=== PATIENT | male | born 1955 | race Caucasian/White ===

== ENCOUNTER 2017-02-17 11:01 | Day surgery (SDC) | payer MEDICARE ==
[~2017-02-17] VITALS: Ht 180.3 cm; Wt 86.2 kg
[2017-02-17] VITALS (8 sets, daily range): BP systolic 85–126; BP diastolic 50–76; PULSE 80–88; RESP 10–19; O2SAT 95–98
[~2017-02-17 11:01] MED LIST: CeFAZolin Inj 2 GM in IV Premix 1 EACH IV ONE; Dexamethasone 4 mg/mL Inj IVPUSH PRN; EPHEDrine Sulfate 50 mg/mL Inj IVPUSH PRN; HYDROmorphone 1 mg/mL Inj IVPUSH PRN; Labetalol 5 mg/mL 4 mL Inj IV PRN; Lactated Ringer's 1,000 ML IV SCH; Lactated Ringer's 500 ML IV PRN; MetoCLOpramide 5 mg/mL 2 mL Inj IVPUSH PRN; Ondansetron 2 mg/mL 2 mL Inj IVPUSH PRN; Phenylephrine 10,000 mCg/mL Inj IVPUSH PRN; TAMS0.4C98 PO; fentaNYL-PF 50 mCg/mL 2 mL Inj IVPUSH PRN; hydrALAZINE 20 mg/mL Inj IVPUSH PRN
[2017-02-17] MEDS ORDERED: Ketamine 10 mg/mL 20 mL Inj ONE (11:02)
[2017-02-17] MEDS ORDERED: fentaNYL-PF 50 mCg/mL 2 mL Inj ONE (11:02)
[2017-02-17] MEDS ORDERED: Lactated Ringer's 1,000 ML IV ONE (11:33)
[2017-02-17] MEDS ORDERED: CeFAZolin 2 Gm/50 mL D5W Duplex Bag IV ONE (11:51)
--- NOTE | 2017-02-17 13:52 | PCM.HPANE ---
Patient Data Date of Service: Feb 17, 2017 Surgeon Admitting Provider: Attending Provider:Ezio Vergara MD Primary Care Physician:Misti Quick MD Other Provider:Hima Dumont Anesthesia Reason for Visit Left Inguinal Hernia Ht/WT & BMI Height (Feet): 5 Height (Inches): 11.00 Weight (Kilograms): 86.180 Body Mass Index 26.00 Allergies Coded Allergies: No Known Allergies (Unverified , 02/16/17) Past Anesthesia History Anesthesia History: Denies:: Anesthesia Reactions Diabetes History Hx Diabetes?: No Medications Home Meds Incl Beta Milagro: No Reported Medications Tamsulosin (Flomax)0.4 Mg Capsule0.4 Mg PO DAILY Ref 0 02/16/17 History History of ENT Problems?: No HEENT History: Denies:: Abnormal Airway Cataracts Difficult Intubation Dysphagia Glaucoma Hearing Problem Sinus Problem TMJ Denture Type: None Teeth Condition: Within Normal Limits Hx of Heart Problems?: No Cardiovascular History: Denies:: AICD Abdominal Aortic Aneurism Atrial Fibrillation Cardiac Surgery Chest Pain Congestive Heart Failure Coronary Artery Disease Edema Heart Murmur Hypertension Irregular Heartbeat Pacemaker Peripheral Vascular Rheumatic Fever Thrombophlebitis Valvular Heart Disease Hx of Respiratory Problem?: No Respiratory History: Denies:: Oxygen Administration Use of C-PAP Machine Hx Neurologic Problems?: No Neurological History: Denies:: CVA Multiple Sclerosis Parkinson's Disease Seizures Hx of GI Problems?: Yes Other GI Pertinent History: left inguinal hernia current admission problem Hx of Problems?: Yes Genitourinary History: Positive for:: Kidney Stones (past hx of kidney stones) Male Hx: Positive for:: Prostate Problems (BPH) Hx Musculoskeletal Problems?: Yes Musculoskeletal History: Positive for:: Degenerative Joint Hx of Psycho/Social Problems?: No Hx Surgeries?: Yes (tonsil, exc lipoma, exc vocal cord tumor) Hx Any Other Health Problems?: Yes Other History: Denies:: Cancer Thyroid Disease Hx Diabetes: No Hx Alcohol Use: YesAlcoholic Drinks Per Day: one drink weeklyHx Substance Use : NoHave You Smoked inLast 12 mo: No Stop/Bang S-Snoring: Do You Snore Loudly: Yes T-Tired: feel tired, fatigued: Yes O-Obsered: Observed not breath: Yes P-Blood Pressure: treated: No B- Body Mass Index > 35 kg/m2: No A- Age over 50: Yes N- Neck Large Circumference: No G- Gender Male: Yes MONSE Total Score: 5 MONSE Risk Assessment: High Risk, =/>3 Yes MONSE Category 2: Yes Risk Assessment Category Category 1A: Patient has history of documented sleep apnea, and HAS NOT received any narcotic, sedative or anesthesia administration during this stay. Category 1B: Patient has history of documented sleep apnea, and HAS received any narcotic , sedative or anesthesia administration during this stay Category 2: Patient has SUSPECTED Obstructive Sleep Apnea, and HAS received any narcotic , sedative or anesthesia administration during this stay. Category 3: Patient has SUSPECTED Obstructive Sleep Apnea and HAS NOT received narcotic, sedative or anesthesia administration during this stay. Category 4: Outpatient in Procedural Areas with known sleep apnea or who screen positive for High Risk via the STOP/BANG questionnaire. Exam Exam Vital Signs Vital Signs Date Time Temp Pulse Resp B/P Pulse Ox O2 Delivery O2 Flow Rate FiO2 02/17/17 11:30 36.6 80 14 126/76 98 Room Air General Appearance: Alert, Oriented X3, Cooperative, No Acute Distress HEENT/AIRWAY: MP 4, Mouth Opening Lungs: Clear to Auscultation, Normal Air Movement Heart: Exam Unremarkable, Regular Rate/Rhythm, No Murmurs/Rubs/Gallops Meds/Labs/Diagnostics Admission Meds Current Medications Lactated Ringer's (Lr) 1,000 ml @ ud STK-MED ONCE IV Last administered on 02/17t 11:33; Start 02/17/17 at 11:33; Stop 02/17/17 at 11:34; Status DC Plan Impression Patient chart reviewed, patient interviewed and anesthestic plan with risks, benefits, and alternatives discussed, and informed consent obtained. NPO per Anesth. Guidelines: Yes ASA Physical Status: ASA2 Mod Systemic Disease Anesthetic Plan: GA Bene/Risks/Altern/Consents: Yes HP Complete Prior to Induction: Yes Wesley Johnson MD Feb 17, 2017 13:52
[2017-02-17] MEDS ORDERED: Bupivacaine-MPF 0.5% 30 mL Inj INFILTRATE ONE (13:54)
[2017-02-17] MEDS ORDERED: oxyCODONE-Acetamin 5-325 mg Tablet PO PRN (15:00)
--- NOTE | 2017-02-17 15:51 | PCM.ANEP1 ---
Post Anesthesia PACU Phase 1 Assessment Vital Signs Vital Signs Date Time Temp Pulse Resp B/P Pulse Ox O2 Delivery O2 Flow Rate FiO2 02/17/17 15:24 36.5 85 16 107/65 95 Room Air 02/17/17 15:20 86 19 112/63 95 Room Air 02/17/17 15:15 85 11 105/67 95 02/17/17 15:10 88 10 97/63 95 Room Air 02/17/17 15:05 87 14 90/59 95 Room Air 02/17/17 15:00 84 14 85/50 95 Room Air 02/17/17 11:30 36.6 80 14 126/76 98 Room Air Anesthetic Administered: GA Level of Alertness: Awake, talking Pain: No Nausea or Vomiting: No CV Function & Hydration Stable: Yes Airway Device: Oralpharangeal Airway Oxygen Delivery: Room Air Lungs: Clear to Auscultation, Normal Air Movement PACU Phase 2 Assessment Complications: No Follow up Care: N/A Patient Instructions Provided: N/A Wesley Johnson MD Feb 17, 2017 15:51
--- NOTE | 2017-02-17 19:33 | OP ---
[address] [address] OPERATIVE REPORT PATIENT: MARCELINO LORENZO : 1955 MR#: [id number] ADMIT: 02/17/2017 JOB ID: [id number] DATE OF SURGERY: 02/17/2017 ANESTHESIA: General. PREOPERATIVE DIAGNOSIS(ES): Symptomatic left inguinal hernia. POSTOPERATIVE DIAGNOSIS(ES): Symptomatic left inguinal hernia (indirect hernia plus cord lipoma). OPERATION: Open repair of left inguinal hernia using mesh. SURGEON: Ezio Vergara MD DIRECTOR INTERNATIONAL: Raffi Catherine PA-C (the clinical trials assistant was required for the safe and timely completion of the case). COMPLICATIONS: None. ESTIMATED BLOOD LOSS: Less than 5 mL. CONDITION: Satisfactory. SPECIMEN: Hernia sac. FINDINGS: He had a small indirect hernia. The sac had a very firm nodule in it I suspect is some necrotic fat, but I sent it off to pathology for good measure. He had a large cord lipoma which was reduced. The hernia was repaired with a soft polypropylene mesh. INDICATIONS/SIGNIFICANT HISTORY: The patient is a 61-year-old man who 3 weeks ago noted some left groin discomfort after straining. He then developed a lump. He sought medical attention for this, was diagnosed with a hernia, and referred to me. Because it is still causing discomfort he elected to undergo repair. OPERATIVE TECHNIQUE: The patient was taken to the operating room and placed in the supine position. General anesthesia was administered and perioperative antibiotics were given. The abdomen and groin were prepped and draped in standard surgical fashion and a procedural pause performed. Local anesthetic was injected into the left inguinal region. A left inguinal incision was made and dissection carried down through skin and subcutaneous tissue. The aponeurosis of the external oblique was opened in line with the fibers to open up the external ring. The cord was circumferentially dissected free. There was a firm nodule at the tip of the hernia sac. The hernia sac was freed up and then I high ligated using 3-0 Vicryl. The sac was sent for pathologic examination. There is also a large cord lipoma which was freed up from the cord and then reduced back through the internal ring. The floor appeared intact. I then trimmed a piece of soft polypropylene mesh to the appropriate size and shape and then secured this in place with interrupted 2-0 PDS sutures. The inguinal nerve was in the area of the repair and therefore sacrificed. The result was a nice reinforcement of the floor with recreation of the internal ring. The aponeurosis of the external oblique was then closed with running 3-0 Vicryl. Luigi's was closed with 3-0 Vicryl followed by running 4-0 Monocryl for the skin. The entire procedure was well tolerated, without complication.
--- NOTE | 2017-02-21 14:44 | PATH ---
SURGICAL PATHOLOGY Attending Physician:Ezio Vergara MD CASE STATUS: Signed Out PATIENT NAME: MARCELINO LORENZO PID: [id number] : 1955 DATE COLLECTED:02/17/2017 00:00 SPECIMEN: Hernia Sac CLINICAL HISTORY: LEFT INGUINAL HERNIA 1). LEFT HERNIA SAC FINAL DIAGNOSIS: 1.SPECIMEN DESIGNATED LEFT HERNIA SAC: TISSUE CONSISTENT WITH HERNIA SAC WITH ASSOCIATED AREAS OF RESOLVING FAT NECROSIS. ICD10 K40.90 GROSS DESCRIPTION: Received in formalin, labeled with the patient's name and "left inguinal sac" is one tissue fragment measuring 3.0 x 1.5 x 1.0 cm. The fragment is bisected with one half submitted in one cassette. ([id number]) MICRO DESCRIPTION: See diagnosis. ICD-9 CODES: CPT CODES: 1: 53078 Electronically Signed Out Maxwell Flores MD [facility] Pathology [facility] [address], [place] [address] Technical component performed at [facility], [facility] [address], [place], [address]
== END 2017-02-17 23:59 | disposition home or self-care (01) ==
LOC: SAS 11:01
PROVIDERS: ATTEND General Practice
DX: K40.90 Unilateral inguinal hernia, without obstruction or gangrene, not specified as recurrent (principal); K21.9 Gastro-esophageal reflux disease without esophagitis; M19.90 Unspecified osteoarthritis, unspecified site; N40.0 Benign prostatic hyperplasia without lower urinary tract symptoms; Z87.442 Personal history of urinary calculi
CPT/HCPCS: 49505; C1781; J0690; J2250; J3010; J7120